=== PATIENT | male | born 1945 | race Two or more races ===

== ENCOUNTER 2023-07-24 21:22 | Inpatient (IN) | payer MEDICARE, MEDICAID ==
[~2023-07-24] VITALS: Ht 188 cm; Wt 100.0 kg
[2023-07-24] MEDS: NALOXONE HCL 1MG/ML 2ML SYRINGE IV ONE (21:20)
[2023-07-24 21:34] VITALS: PULSE 75; RESP 12; O2SAT 100
[2023-07-24 21:54] LABS: Basophils # (auto) 0.1 10 ^3/uL (0-0.2); Basophils % (auto) 0.6 % (0.0-2.0); Eosinophils # (auto) 0 10 ^3/uL (0-0.8); Eosinophils % (auto) 0.2 % (0.0-7.0); Hematocrit 40.5 % (41.0-53.0); Hemoglobin 11.8 g/dL (13.5-17.5); Lymphocytes # (auto) 0.8 10 ^3/uL (0.4-5.4); Lymphocytes % (auto) 6.5 % (10.0-50.0); Mean Corpuscular Hemoglobin 27.2 pg (28.0-32.0); Mean Corpuscular Hgb Conc. 29.1 g/dL (32.0-36.0); Mean Corpuscular Volume 93.5 fL (80.0-100.0); Monocytes % (auto) 7.6 % (0.0-12.0); Neutrophils # (auto) 10.9 10 ^3/uL (1.6-8.6); Neutrophils % (auto) 85.1 % (37.0-80.0); Nucleated Red Blood Cells % 0.3 %; Red Blood Cells 4.34 10^6/uL (4.5-5.90); Red Cell Distribution Width 16.9 % (11.8-14.3); White Blood Cell 12.8 10^3/uL (4.4-10.8)
[2023-07-24 22:04] LABS: Chloride 111 mmol/L (98-107); Potassium 3.8 mmol/L (3.5-5.1); Sodium 140 mmol/L (136-145)
[2023-07-24 22:05] LABS: Anion Gap 3 (5-15); Calcium 9.3 mg/dL (8.7-10.4); Carbon Dioxide 26 mmol/L (20-30)
[2023-07-24 22:10] LABS: Blood Urea Nitrogen 8 mg/dL (9-23); Glucose 158 mg/dL (74-106)
[2023-07-24] MEDS: cefTRIAXone 1GM/50ML D5W 50 ML IV ONE (22:11)
[2023-07-24 22:12] LABS: Base Excess -11.1 mmol/L (-2.0-2.0)
[2023-07-24] MEDS ORDERED: VANCOMYCIN PER PHARMACY 0 MG IV SCH ×2 (22:15→23:45)
[2023-07-24 23:25] LABS: Amphetamine Screen, Urine Neg (NEGATIVE); Barbiturate Scree,Urine Neg (NEGATIVE); Benzodiazephine Screen, Urine Neg (NEGATIVE); Cannabinoid Screen, Urine Neg (NEGATIVE); Cocaine Screen, Urine Neg (NEGATIVE); Opiate Scree,Urine Pos (NEGATIVE); Phencyclidine Screen, Urine Neg (NEGATIVE)
[2023-07-24] MEDS: VANCOMYCIN 1GM/200ML 200 ML IV ONE (23:35)
[2023-07-24 23:40] LABS: Urine Bacteria FEW /hpf (None Seen); Urine Blood 2+ /uL (Negative); Urine Clarity HAZY (Clear); Urine Color Yellow (Yellow); Urine Mucus FEW (None Seen); Urine Protein, UAD 2+ (Negative); Urine Specific Gravity 1.015 (1.001-1.035); Urine Urobilinogen Normal (Negative); Urine WBC 388 /hpf (0 - 3); Urine WBC Clumps PRESENT /hpf (None Seen); Urine pH 5.5 (5.0-8.0)
[2023-07-24] MEDS: CEFEPIME 1GM/ 50ML 50 ML IV ONE (23:49)
[2023-07-25] VITALS (8 sets, daily range): BP systolic 82–109; BP diastolic 38–63; PULSE 63–105; RESP 12–25; TEMP 93.6; O2SAT 68–98
[2023-07-25 00:01] LABS: Base Excess -8.2 mmol/L (-2.0-2.0)
[2023-07-25] MEDS ORDERED: ALBUTEROL SULF 2.5 MG/0.5ML(0.5%) NEB SOLN NEB PRN (00:30)
[2023-07-25] MEDS ORDERED: MORPHINE SULFATE INJ 2 MG/ml SYRG IV PRN ×3 (00:30)
[2023-07-25] MEDS ORDERED: NITROGLYCERIN 0.4 MG SL TAB SL PRN ×2 (00:30)
[2023-07-25] MEDS ORDERED: HYDROcodone-ACET 5/325MG TAB PO PRN (00:30)
[2023-07-25 07:18] LABS: Base Excess -6.8 mmol/L (-2.0-2.0)
[2023-07-25 10:09] LABS: Base Excess -4.3 mmol/L (-2.0-2.0)
[2023-07-25] MEDS: AZITHROMYCIN 500MG/ 250ML 250 ML IV SCH (10:35)
[2023-07-25] MEDS: cefTRIAXone 1GM/50ML D5W 50 ML IV SCH (10:36)
[2023-07-25] MEDS ORDERED: DEXTROSE (50%) 50ML SYRG IV PRN (15:30)
[2023-07-25] MEDS: VANCOMYCIN 1GM/200ML 200 ML IV SCH (16:33)
[2023-07-25] MEDS: InsuLIN REG 1unit/0.01ml Soln (100units/ml) SC SCH (17:00)
[2023-07-25] MEDS: ACCU-CHEK COMFORT CURVE STRIP VI SCH (17:13)
[2023-07-25] MEDS: MIDODRINE HCL 10 MG TAB PO SCH (18:13)
[2023-07-25] MEDS: ALBUTEROL SULF 2.5 MG/0.5ML(0.5%) NEB SOLN NEB SCH (18:31)
[2023-07-26] VITALS (16 sets, daily range): BP systolic 102–144; BP diastolic 45–67; PULSE 90–111; RESP 18–20; TEMP 97.7–97.8; O2SAT 95–99
[2023-07-26] MEDS ORDERED: FAMO-12 PO (04:30)
[2023-07-26] MEDS ORDERED: METO25TA93 PO (04:30)
[2023-07-26] MEDS ORDERED: LEVO500T91 PO (04:30)
[2023-07-26] MEDS ORDERED: FENO48TA13 PO (04:30)
[2023-07-26] MEDS ORDERED: HYDR-4798 PO (04:31)
[2023-07-26] MEDS: PANTOPRAZOLE 40 MG/10 ML VIAL INJ IV SCH (10:37)
[2023-07-26] MEDS: ENOXAPARIN SOD 40 MG/0.4 ML SYRINGE SC SCH (10:38)
[2023-07-26 10:48] LABS: Basophils # (auto) 0 10 ^3/uL (0-0.2); Basophils % (auto) 0.4 % (0.0-2.0); Eosinophils # (auto) 0.2 10 ^3/uL (0-0.8); Eosinophils % (auto) 1.5 % (0.0-7.0); Hematocrit 32.5 % (41.0-53.0); Hemoglobin 9.7 g/dL (13.5-17.5); Lymphocytes % (auto) 9.3 % (10.0-50.0); Mean Corpuscular Hemoglobin 27.6 pg (28.0-32.0); Mean Corpuscular Hgb Conc. 29.9 g/dL (32.0-36.0); Mean Corpuscular Volume 92.1 fL (80.0-100.0); Monocytes # (auto) 1.1 10 ^3/uL (0-1.3); Monocytes % (auto) 9.6 % (0.0-12.0); Neutrophils # (auto) 8.8 10 ^3/uL (1.6-8.6); Neutrophils % (auto) 79.2 % (37.0-80.0); Nucleated Red Blood Cells % 0.2 %; Red Blood Cells 3.53 10^6/uL (4.5-5.90); Red Cell Distribution Width 16.3 % (11.8-14.3); White Blood Cell 11.1 10^3/uL (4.4-10.8)
[2023-07-26 11:07] LABS: Alanine Aminotransferase 17 U/L (7-40); Alkaline Phosphatase 49 U/L (46-116); Anion Gap 5 (5-15); Aspartate Aminotransferase 18 U/L (13-40); BUN/Creatinine Ratio 10.5 (10.0-20.0); Blood Urea Nitrogen 10 mg/dL (9-23); Calcium 8.8 mg/dL (8.7-10.4); Carbon Dioxide 23 mmol/L (20-30); Chloride 111 mmol/L (98-107); Glucose 113 mg/dL (74-106); Potassium 3.7 mmol/L (3.5-5.1); Sodium 139 mmol/L (136-145)
[2023-07-26 11:08] LABS: Albumin 3.2 g/dL (3.2-4.8)
[2023-07-26 11:09] LABS: Bilirubin, Total < 0.2 mg/dL (0.2-1.0); Total Protein 5.8 g/dL (5.7-8.2)
[2023-07-26] MEDS: methylPREDNISolone SOD SUCC 40 MG/ML VL IV SCH (21:58)
[2023-07-27] VITALS (10 sets, daily range): BP systolic 114–186; BP diastolic 54–91; PULSE 80–120; RESP 16–22; TEMP 97.6–99.2; O2SAT 92–99
[2023-07-27] MEDS: LABETALOL HCL 5 MG/ML 4ML SYRINGE IV PRN (06:15)
[2023-07-27] MEDS: ACETAMINOPHEN 325 MG TAB PO PRN (13:29)
[2023-07-27] MEDS: ACETAMINOPHEN 325 MG TAB PO ONE (21:09)
[2023-07-28] VITALS (19 sets, daily range): BP systolic 152–171; BP diastolic 70–89; PULSE 82–104; RESP 16–24; TEMP 97.6–98.1; O2SAT 92–100
[2023-07-28] MEDS: METOPROLOL SUCCINATE XL 50 MG TAB PO SCH (08:43)
[2023-07-28] MEDS: Fenofibrate 48 MG PO SCH (10:00)
[2023-07-28] MEDS ORDERED: PATIENTS OWN MEDICATION (Metoprolol Succinate (Metoprolol Succinate Er) 1 TAB) PO SCH (10:00)
[2023-07-28 10:04] LABS: Chloride 106 mmol/L (98-107); Potassium 3.8 mmol/L (3.5-5.1); Sodium 135 mmol/L (136-145)
[2023-07-28 10:05] LABS: Anion Gap 4 (5-15); Carbon Dioxide 25 mmol/L (20-30)
[2023-07-28 10:10] LABS: BUN/Creatinine Ratio 12.2 (10.0-20.0); Blood Urea Nitrogen 10 mg/dL (9-23); Glucose 140 mg/dL (74-106)
[2023-07-28 10:15] LABS: Basophils # (auto) 0 10 ^3/uL (0-0.2); Eosinophils # (auto) 0 10 ^3/uL (0-0.8); Hemoglobin 10.1 g/dL (13.5-17.5); Lymphocytes # (auto) 0.3 10 ^3/uL (0.4-5.4); Monocytes # (auto) 0.3 10 ^3/uL (0-1.3); Nucleated Red Blood Cells % 0.2 %
[2023-07-28 10:18] LABS: Basophils % (auto) 0.4 % (0.0-2.0); Hematocrit 32.6 % (41.0-53.0); Lymphocytes % (auto) 5.8 % (10.0-50.0); Mean Corpuscular Hgb Conc. 31.1 g/dL (32.0-36.0); Mean Corpuscular Volume 90.3 fL (80.0-100.0); Monocytes % (auto) 6.6 % (0.0-12.0); Neutrophils # (auto) 3.8 10 ^3/uL (1.6-8.6); Neutrophils % (auto) 87.2 % (37.0-80.0); Red Blood Cells 3.61 10^6/uL (4.5-5.90); White Blood Cell 4.3 10^3/uL (4.4-10.8)
[2023-07-28] MEDS: FUROSEMIDE 40 MG/4 ML VIAL IV ONE (10:36)
[2023-07-28] MEDS ORDERED: VANCOMYCIN PER PHARMACY 0 MG IV SCH (21:15)
[2023-07-28] MEDS: MUPIROCIN 2% OINT 15gm or 22gm FOR MRSA NARES EACHNOSTRI SCH (22:00)
[2023-07-29] VITALS (18 sets, daily range): BP systolic 120–148; BP diastolic 63–98; PULSE 83–107; RESP 14–22; TEMP 96.7–98.1; O2SAT 92–99
[2023-07-29 05:26] LABS: Chloride 105 mmol/L (98-107); Potassium 3.7 mmol/L (3.5-5.1); Sodium 138 mmol/L (136-145)
[2023-07-29 05:27] LABS: Anion Gap 3 (5-15); Calcium 8.7 mg/dL (8.7-10.4); Carbon Dioxide 30 mmol/L (20-30)
[2023-07-29 05:32] LABS: Glucose 141 mg/dL (74-106)
[2023-07-29 05:33] LABS: Blood Urea Nitrogen 15 mg/dL (9-23); Magnesium 2.2 mg/dL (1.6-2.6)
[2023-07-29 05:51] LABS: Hematocrit 35.5 % (41.0-53.0); Hemoglobin 10.9 g/dL (13.5-17.5); Mean Corpuscular Hgb Conc. 30.6 g/dL (32.0-36.0); Mean Corpuscular Volume 91.6 fL (80.0-100.0); Red Blood Cells 3.88 10^6/uL (4.5-5.90); Red Cell Distribution Width 16.4 % (11.8-14.3); White Blood Cell 5.5 10^3/uL (4.4-10.8)
[2023-07-29 06:06] LABS: Basophils % (manual) 0 (0.0-2.0); Blast Cells 0; Eosinophils % (manual) 0 (0-7); Metamyelocytes % 0; Myelocytes % 0; Promyelocytes % 0; Reactive Lymphocytes 0
[2023-07-29 08:05] LABS: Anisocytosis Slight; Band Neutrophils % (manual) 4; Hypochromia Slight; Lymphocytes % (manual) 4 (10.0-50.0); Monocytes % (manual) 5 (0-12); Platelet Estimate Adequate
[2023-07-29] MEDS: FUROSEMIDE 20 MG TAB PO SCH (10:33)
[2023-07-29] MEDS: FUROSEMIDE 40 MG/4 ML VIAL IV SCH (14:00)
[2023-07-29] MEDS: VANCOMYCIN 500 MG in D5W 5% 100 ML IV ONE (17:29)
[2023-07-30] VITALS (16 sets, daily range): BP systolic 107–153; BP diastolic 44–78; PULSE 87–111; RESP 14–22; TEMP 96.5–99.5; O2SAT 91–97
[2023-07-30 16:00] LABS: Chloride 99 mmol/L (98-107); Sodium 140 mmol/L (136-145)
[2023-07-30 16:01] LABS: Calcium 9.1 mg/dL (8.7-10.4); Carbon Dioxide 38 mmol/L (20-30)
[2023-07-30 16:06] LABS: BUN/Creatinine Ratio 32.9 (10.0-20.0); Glucose 155 mg/dL (74-106)
[2023-07-30 16:07] LABS: Magnesium 1.9 mg/dL (1.6-2.6)
[2023-07-30 16:08] LABS: Blood Urea Nitrogen 28 mg/dL (9-23)
[2023-07-30 16:10] LABS: Potassium 2.4 mmol/L (3.5-5.1)
[2023-07-30] MEDS: MAGNESIUM SULFATE 1GM/100ML 100 ML IV SCH (16:36)
[2023-07-30] MEDS: POTASSIUM CHL 20MEQ/100ML 100 ML IV SCH (16:36)
[2023-07-30] MEDS: POTASSIUM CHL 20 Meq TABLET PO ONE (16:47)
[2023-07-30 17:03] LABS: Anion Gap 3 (5-15)
[2023-07-31] VITALS (19 sets, daily range): BP systolic 141–164; BP diastolic 81–95; PULSE 94–115; RESP 17–22; TEMP 96.9–98.8; O2SAT 91–99
[2023-07-31 13:38] LABS: Chloride 94 mmol/L (98-107); Potassium 2.9 mmol/L (3.5-5.1); Sodium 138 mmol/L (136-145)
[2023-07-31 13:44] LABS: BUN/Creatinine Ratio 31.6 (10.0-20.0); Blood Urea Nitrogen 25 mg/dL (9-23); Glucose 166 mg/dL (74-106)
[2023-07-31 14:03] LABS: Anion Gap 3.99999 (5-15); Carbon Dioxide > 40 mmol/L (20-30)
[2023-07-31] MEDS: POTASSIUM CHL 20MEQ/100ML 100 ML IV SCH (16:49)
[2023-08-01] VITALS (9 sets, daily range): BP systolic 151; BP diastolic 97; PULSE 94–104; RESP 18–24; TEMP 97.2; O2SAT 92–97
[2023-08-01] MEDS: VANCOMYCIN 500 MG in D5W 5% 100 ML IV ONE (12:52)
== END 2023-08-01 17:15 | DRG 871 ==
LOC: ER 21:22 → EDBD 21:22 → ER 23:59 → TELE 07-25 00:24 → TELE-CENTR 07-26 03:40
PROVIDERS: ADMIT Nurse Practitioner; ATTEND Nurse Practitioner
PROC: 5A09357 Assistance with Respiratory Ventilation, Less than 24 Consecutive Hours, Continuous Positive Airway Pressure (ICD-10-PCS; principal; 2023-07-24)
DX: A41.9 Sepsis, unspecified organism (principal); G93.41 Metabolic encephalopathy; I50.33 Acute on chronic diastolic (congestive) heart failure; J96.01 Acute respiratory failure with hypoxia; J96.02 Acute respiratory failure with hypercapnia; J15.69 Pneumonia due to other Gram-negative bacteria; J15.9 Unspecified bacterial pneumonia; N30.01 Acute cystitis with hematuria; J81.1 Chronic pulmonary edema; J44.0 Chronic obstructive pulmonary disease with (acute) lower respiratory infection; E11.65 Type 2 diabetes mellitus with hyperglycemia; E66.9 Obesity, unspecified; I50.9 Heart failure, unspecified; Z66 Do not resuscitate; I11.0 Hypertensive heart disease with heart failure; F17.200 Nicotine dependence, unspecified, uncomplicated; Z86.73 Personal history of transient ischemic attack (TIA), and cerebral infarction without residual deficits; Z68.28 Body mass index [BMI] 28.0-28.9, adult
CPT/HCPCS: 36415; 36600; 70450; 71045; 80048; 80053; 80202; 80307; 81001; 82140; 82565; 82805; 82962; 83036; 83605; 83735; 83880; 84100; 84484; 85007; 85025; 85027; 85379; 87040; 87081; 93005; 94640; 94660; 96365; 96375; 97110; 97163; 97530; 99291; C9113; G0378; J1815; J3480; J3490; J7060